=== PATIENT | female | born 1940 | race Caucasian/White ===

== ENCOUNTER → 2023-11-09 10:05 | Outpatient (REF) | payer MEDICARE, SELFPAY | LOC: HWRCS 10:05 | PROVIDERS: ATTENDING PHYSICIAN Internal Medicine Cardiovascular Disease; FAMILY PHYSICIAN Internal Medicine Geriatric Medicine | DX: I34.0 Nonrheumatic mitral (valve) insufficiency (principal) | CPT/HCPCS: 93306 ==

== ENCOUNTER → 2024-01-12 17:07 | Outpatient (REF) | payer MEDICARE, SELFPAY | LOC: CLAB 17:07 | PROVIDERS: ATTENDING PHYSICIAN Orthopaedic Surgery | DX: M72.0 Palmar fascial fibromatosis [Dupuytren] (principal); E11.9 Type 2 diabetes mellitus without complications | CPT/HCPCS: 88304 ==

== ENCOUNTER → 2024-02-06 09:12 | Outpatient (REF) | payer MEDICARE, SELFPAY | LOC: HWRAD 09:12 | PROVIDERS: ATTENDING PHYSICIAN Internal Medicine Rheumatology; FAMILY PHYSICIAN Internal Medicine Geriatric Medicine; REFERRING PHYSICIAN Internal Medicine Hematology & Oncology | DX: M81.0 Age-related osteoporosis without current pathological fracture (principal); Z12.31 Encounter for screening mammogram for malignant neoplasm of breast | CPT/HCPCS: 77063; 77067; 77080 ==